=== PATIENT | female | born 1975 | race Caucasian/White ===

== ENCOUNTER 2017-02-02 08:41 | Emergency (ER) | payer MEDICAID ==
[2017-02-02 08:51] VITALS: BMI 25.7
[2017-02-02 08:54] VITALS: TEMP 98.6
--- NOTE | 2017-02-02 09:07 | C.PDOC ---
History Of Present Illness 41 year old female (), currently 12 weeks , presents to the ED with complaints of pelvic cramping and vaginal bleeding since 04:00 today. Patient states she was walking over to the bathroom at 04:00 when she passed four large clots, and two more while on the toilet. She states she was seen by her PRINCIPAL EXAMINER 2 days ago, had normal appointment. Patient reports she has been nauseous throughout her , and began to feel dizzy after the bleeding began. Her bleeding has decreased to some spotting. Patienrt denies fever, chills, vomiting, dysuria. Time Seen by Provider: 02/02/17 08:42 Chief Complaint (Nursing): Female Genitourinary History Per: Patient History/Exam Limitations: no limitations Onset/Duration Of Symptoms: Hrs Current Symptoms Are (Timing): Better Severity: Mild Radiation Of Pain To:: None Quality Of Discomfort: Cramping Associated Symptoms: Nausea. denies: Fever, Chills, Vomiting, Urinary Symptoms Exacerbating Factors: None Abnormal Vaginal Bleeding: Yes Past Medical History Reviewed: Historical Data, Nursing Documentation, Vital Signs Vital Signs: Last Vital Signs Temp 98.6 F 02/02/17 08:53 Pulse 86 02/02/17 12:41 Resp 17 02/02/17 12:41 BP 106/66 02/02/17 12:41 Pulse Ox 98 02/16/17 00:42 - Medical History PMH: No Chronic Diseases Family History: States: No Known Family Hx Review Of Systems Except As Marked, All Systems Reviewed And Found Negative. Constitutional: Negative for: Fever, Chills Cardiovascular: Negative for: Chest Pain Respiratory: Negative for: Shortness of Breath Gastrointestinal: Positive for: Nausea. Negative for: Vomiting, Abdominal Pain , Diarrhea Genitourinary: Positive for: Vaginal Bleeding, Pelvic Pain (+Pelvic cramping) Neurological: Positive for: Dizziness Physical Exam - Physical Exam Appears: Well, Non-toxic, No Acute Distress, Other (+Tearful) Skin: Normal Color, Warm, Dry Eye(s): bilateral: Normal Inspection Oral Mucosa: Moist Cardiovascular: Rhythm Regular Respiratory: Normal Breath Sounds, No Accessory Muscle Use, No Rales, No Rhonchi , No Wheezing Gastrointestinal/Abdominal: Bowel Sounds, Soft, Tenderness (+Mild suprapubic tenderness), No Guarding, No Rebound, Other (+Gravid; fundus is approximately 4.0 cm below the umbilicus) Back: Normal Inspection, No CVA Tenderness Extremity: Normal ROM Neurological/Psych: Oriented x3 ED Course And Treatment - Laboratory Results Result Diagrams: 02/02/17 09:28 02/02/17 09:28 O2 Sat by Pulse Oximetry: 98 (Room air) Pulse Ox Interpretation: Normal - CT Scan/US 1st Trimester US Other Rad Studies (CT/US): Read By Radiologist, Radiology Report Reviewed CT/US Interpretation: FINDINGS: UTERUS: Single Live intrauterine gestation. CRL equivalent to 13 weeks 3 days gestatioin. BPD equivalent to 14 weeks 0 days gestation. age (Ultrasound estimated): 13 weeks 5 days. Date of delivery (Ultrasound estimated) : 08/05/2017. Heart rate: 171 bpm. Sandy- gestational hemorrhage: Large perigestational hemorrhage with echogenic clot and serous fluid. The echogenic clot measures 9.2 cm by 10.8 x 4.4 cm. It appears somewhat organized and has an appearance that could represent neoplasm. However, this is unlikely. There is no flow demonstrated within this clot on color Doppler interrogation. Followup with pelvic ultrasound is advised. This is seen predominantly in the lower uterus sitting at the top the internal cervical os. The cervix appears closed and measures 4.1 cm in length. Uterus measures 18.6 x 9.1 x 13.7 cm. No mass. CERVIX: 4.1 cm. Closed. RIGHT OVARY : Measures 3.6 x 2.4 x 2.8 cm. No mass. Normal flow. LEFT OVARY: Not visualized. FREE FLUID: None. OTHER FINDINGS: None. IMPRESSION: Probable very large large subchorionic hemorrhage. What is likely organized clot has an appearance that could represent neoplasm but this is felt to be unlikely. . Single live intrauterine gestation of approximately 13 weeks 5 days. heart rate 171 beats per minute. Progress Note: Blood work, UA, ob US ordered and reviewed. Patient given IV NS bolus, IV reglan - did not want pain medication. Reevaluation Time: 13:15 Reassessment Condition: Improved (Patient currently resting comfortably, nausea has resolved and bleeding is scant. She was instructed to be on strict bed rest , have no sex and follow up with [facility] Dr. Chen for high risk sono as soon as possible. She was given Rxs for Reglan, Ferrous sulfate and Tylenol. Patient understands she should return to ED if symptoms worsen.) - Physician Consult Information Physician Contacted: Milton Guy Outcome Of Conversation: Discussed patient with national sales trainer gusset ripper Dr. Guy, she has looked at US. Recommends checking coags, patient should be on strict bedrest, no sex and should get high risk sono with MFM Dr. Chen if possible. Disposition Counseled Patient/Family Regarding: Studies Performed, Diagnosis, Need For Followup, Rx Given - Disposition Referrals: Darrell Chen MD [Staff Provider] - [facility] [Outside] Disposition: HOME/ ROUTINE Disposition Time: 13:15 Condition: STABLE Additional Instructions: FOLLOW UP WITH HIGH RISL PRINCIPAL EXAMINER WITHIN 1 WEEK NO SEX, STRICT BEDREST RETURN TO ER IF SYMPTOMS WORSEN Prescriptions: Ferrous Sulfate [Feosol] 325 mg PO DAILY #30 tab Metoclopramide [Reglan] 1 tab PO TID PRN #25 tab PRN Reason: Nausea/Vomiting Acetaminophen [Tylenol 325mg tab] 650 mg PO Q6 PRN #30 tab PRN Reason: pain/fever Instructions: Subchorionic Hemorrhage (ED), Threatened Miscarriage (ED) Forms: School Excuse Print Language: HUNGARIAN - POA Present On Arrival: None - Clinical Impression Clinical Impression: Subchorionic hemorrhage in second trimester, Vaginal bleeding in - Scribe Statement The provider has reviewed the documentation as recorded by the Scribe Jennifer David. Provider Attestation: All medical record entries made by the Scribe were at my direction and personally dictated by me. I have reviewed the chart and agree that the record accurately reflects my personal performance of the history, physical exam, medical decision making, and the department course for this patient. I have also personally directed, reviewed, and agree with the discharge instructions and disposition.
[2017-02-02 09:33] LABS: BASO % 0.3 % (0.0-2.0); EOS # 0.1 K/uL (0.0-0.7); EOS % 0.9 % (0.0-4.0); HEMATOCRIT 31.2 % (34.0-47.0); LYMPH # 1.3 K/uL (1.0-4.3); LYMPH % 20.5 % (20.0-40.0); MEAN CELL VOLUME 76.1 fL (81.0-99.0); MEAN CORPUSCULAR HEMOGLOBIN 24.2 pg (27.0-31.0); MEAN CORPUSCULAR HGB CONC 31.8 g/dL (33.0-37.0); MEAN PLATELET VOLUME 7.7 fL (7.2-11.7); MONO # 0.4 K/uL (0.0-0.8); MONO % 5.9 % (0.0-10.0); RED CELL DISTRIBUTION WIDTH 16.7 % (11.5-14.5); WHITE BLOOD COUNT 6.4 K/uL (4.8-10.8)
[2017-02-02] MEDS ORDERED: Sodium Chloride 0.9% 1,000 ML IV ONE (09:34)
[2017-02-02 09:37] LABS: URINE BILIRUBIN NEGATIVE (NEGATIVE); URINE BLOOD 3+ (NEGATIVE); URINE COLOR Red (YELLOW); URINE GLUCOSE (UA) NORMAL (Normal); URINE KETONE NEGATIVE (NEGATIVE); URINE LEUKOCYTE ESTERASE 2+ Leu/uL (Negative); URINE PROTEIN 2+ mg/dL (NEGATIVE); URINE UROBILINOGEN NORMAL mg/dL (0.2-1.0)
[2017-02-02] MEDS ORDERED: Sodium Chloride 0.9% 1,000 ML ONE (09:40)
[2017-02-02 09:41] LABS: CHLORIDE 100 mmol/L (98-107)
[2017-02-02 09:42] LABS: POTASSIUM 3.6 mmol/L (3.6-5.2); SODIUM 135 mmol/L (132-148)
[2017-02-02 09:44] LABS: AST/SGOT 21 U/L (14-36); BILIRUBIN,TOTAL 0.3 mg/dL (0.2-1.3); BLOOD UREA NITROGEN 7 mg/dL (7-17); CARBON DIOXIDE 24 mmol/L (22-30); GFR AFRICAN-AMERICAN > 60; TOTAL PROTEIN 7.4 g/dL (6.3-8.3)
[2017-02-02 09:45] LABS: ALKALINE PHOSPHATASE 42 U/L (38-126); ALT/SGPT 24 U/L (9-52); CALCIUM 9.1 mg/dl (8.6-10.4); GLUCOSE,RANDOM 90 mg/dL (65-105)
[2017-02-02 09:50] LABS: RBC URINE 1450 /hpf (0-3); URINE BACTERIA FEW (<OCC); WBC URINE 15 /hpf (0-5)
--- NOTE | 2017-02-02 11:27 | US ---
PROCEDURE: OB Pelvic Ultrasound HISTORY: PELVIC PAIN, BLEEDING, COMPARISON: None available. FINDINGS: UTERUS: Single Live intrauterine gestation. CRL equivalent to 13 weeks 3 days gestatioin BPD equivalent to 14 weeks 0 days gestation age (Ultrasound estimated): 13 weeks 5 days Date of delivery (Ultrasound estimated) : 08/05/2017 Heart rate: 171 bpm. Sandy-gestational hemorrhage: Large perigestational hemorrhage with echogenic clot and serous fluid. The echogenic clot measures 9.2 cm by 10.8 x 4.4 cm. It appears somewhat organized and has an appearance that could represent neoplasm. However, this is unlikely. There is no flow demonstrated within this clot on color Doppler interrogation. Followup with pelvic ultrasound is advised. This is seen predominantly in the lower uterus sitting at the top the internal cervical os. The cervix appears closed and measures 4.1 cm in length. Uterus measures 18.6 x 9.1 x 13.7 cm. No mass CERVIX: 4.1 cm. Closed. RIGHT OVARY: Measures 3.6 x 2.4 x 2.8 cm. No mass. Normal flow. LEFT OVARY: Not visualized FREE FLUID: None. OTHER FINDINGS: None. IMPRESSION: Probable very large large subchorionic hemorrhage. What is likely organized clot has an appearance that could represent neoplasm but this is felt to be unlikely. . Single live intrauterine gestation of approximately 13 weeks 5 days. heart rate 171 beats per minute.
[2017-02-02 12:42] VITALS: BP 106/66; PULSE 86; RESP 17
[2017-02-02 12:46] VITALS: O2SAT 98
== END 2017-02-02 13:51 | disposition home or self-care (01) ==
LOC: C.ER 08:41
DX: O20.9 Hemorrhage in early pregnancy, unspecified (principal); Z3A.12 12 weeks gestation of pregnancy
CPT/HCPCS: 76801; 80053; 81001; 84702; 85025; 85610; 85730; 86850; 86900; 96361; 96365; 99285; J2765; J7040

== ENCOUNTER 2017-02-10 14:29 | Emergency (ER) | payer MEDICAID ==
[2017-02-10 14:30] VITALS: BMI 25.7
--- NOTE | 2017-02-10 15:36 | C.PDOC ---
History Of Present Illness 41 y/o F p/w abdominal pain in . Approximately 15 weeks . States she had the same pain last week and was here, had US which showed subchorionic hemorrhage and was instructed to f/u with MFM and has appointment for 02/23. States bleeding that she had on prior visit stopped 2 days ago. Reports that pain has worsened and has had persistent nausea and vomiting. She is concerned about the fetus. She has been taking acetaminophen which was prescribed as 325mg Q6 hours. Denies dysuria, fever. Time Seen by Provider: 02/10/17 15:21 Chief Complaint (Nursing): Abdominal Pain History Per: Patient History/Exam Limitations: no limitations Onset/Duration Of Symptoms: Days Current Symptoms Are (Timing): Still Present Past Medical History Reviewed: Historical Data, Nursing Documentation, Vital Signs Vital Signs: Last Vital Signs Temp 97.9 F 02/10/17 14:45 Pulse 79 02/10/17 14:45 Resp 18 02/10/17 14:45 BP 97/63 L 02/10/17 14:45 Pulse Ox 100 02/10/17 16:00 Family History: States: No Known Family Hx - Social History Hx Alcohol Use: No Hx Substance Use: No - Immunization History Hx Tetanus Toxoid Vaccination: No Hx Influenza Vaccination: Yes Hx Pneumococcal Vaccination: No Review Of Systems Except As Marked, All Systems Reviewed And Found Negative. Constitutional: Negative for: Fever Cardiovascular: Negative for: Chest Pain Physical Exam - Physical Exam Additional Physical Exam Comments: Constitutional: No acute distress. Head: Normocephalic. Atraumatic. Eyes: PERRL. ENT: Moist mucous membranes. Neck: Supple. Cardiovascular: Regular rate. Radial pulses 2+ bilaterally. Chest: No tenderness. Respiratory: Clear to auscultation bilaterally. GI: Soft. Nondistended. Diffuse abdominal tenderness, most in lower abdomen with guarding. Back: No CVA tenderness. Musculoskeletal: No tenderness or swelling of extremities. Skin: No rash. Neurologic: Alert, no focal deficit. ED Course And Treatment - Laboratory Results Result Diagrams: 02/10/17 15:53 02/10/17 15:53 O2 Sat by Pulse Oximetry: 100 Medical Decision Making Medical Decision Making: PLAN: * US - OB * CBC * BETA Quant * Urinalysis * Tylenol PO NOTE: * Will repeat US and assess subchorionic hemorrhage and FHR. Check labs, urine, Hb, and beta. Will give full dose acetaminophen now. US - OB: Findings: Anterior fundal placenta. The placenta does not appear previa. Variable presentation. [place]-rump length measures approximately 8.4 cm compatible with gestational age 14 weeks 2 days. Large subchorionic hemorrhage measures approximately 7.5 x 6.2 x 5.7 cm. There is heart motion which measured 149.4 BPM. The right ovary measures 3.5 x 3.3 x 3.1 cm. The left ovary measures 4.0 x 2.0 x 4.4 cm. 1.7 x 1.2 x 1.9 cm left ovarian cyst. Blood flow was demonstrated to both ovaries. Cervix length measures approximately 6.5 cm. Impression: Estimated gestational age of intrauterine 14 weeks 2 days by crown- rump length calculation. heart rate 149.4 bpm. Large subchorionic hemorrhage. Advise an anomaly screen at 16-18 weeks gestational age Patient states she feels better after acetaminophen. According to US, fetus with FHR, increasing in size, subchorionic hemorrhage appears to be smaller in size. Will discharge patient, instructed to keep appointment with MFM. Increasing dose of acetaminophen to 650mg Q4H. Patient also requested medication for constipation. Disposition - Disposition Disposition: HOME/ ROUTINE Disposition Time: 17:30 Condition: STABLE Prescriptions: Nitrofurantoin Macrocrystals [Macrobid] 100 mg PO BID #14 cap Sennosides [Senexon] 2 tab PO QPM #30 tablet Acetaminophen [Tylenol 325mg tab] 2 tab PO Q4H #30 tab Instructions: Abdominal Pain in (ED) Forms: School Excuse - Clinical Impression Clinical Impression: Subchorionic hemorrhage in second trimester, Urinary tract infection in mother during - Scribe Statement The provider has reviewed the documentation as recorded by the Adelaide Bearden Provider Attestation: All medical record entries made by the Dominiqueibkarina were at my direction and personally dictated by me. I have reviewed the chart and agree that the record accurately reflects my personal performance of the history, physical exam, medical decision making, and the department course for this patient. I have also personally directed, reviewed, and agree with the discharge instructions and disposition.
[2017-02-10 16:02] LABS: BASO % 0.3 % (0.0-2.0); EOS # 0.1 K/uL (0.0-0.7); EOS % 1.6 % (0.0-4.0); HEMATOCRIT 28.4 % (34.0-47.0); LYMPH # 1.5 K/uL (1.0-4.3); LYMPH % 20.7 % (20.0-40.0); MEAN CELL VOLUME 76.1 fL (81.0-99.0); MEAN CORPUSCULAR HEMOGLOBIN 24.3 pg (27.0-31.0); MONO # 0.5 K/uL (0.0-0.8); MONO % 6.3 % (0.0-10.0); RED CELL DISTRIBUTION WIDTH 16.8 % (11.5-14.5); WHITE BLOOD COUNT 7.4 K/uL (4.8-10.8)
[2017-02-10 16:07] LABS: RBC URINE 53 /hpf (0-3); URINE BACTERIA MOD (<OCC); URINE BILIRUBIN NEGATIVE (NEGATIVE); URINE BLOOD 1+ (NEGATIVE); URINE COLOR Amber (YELLOW); URINE GLUCOSE (UA) NORMAL (Normal); URINE KETONE NEGATIVE (NEGATIVE); URINE LEUKOCYTE ESTERASE 3+ Leu/uL (Negative); URINE PROTEIN 1+ mg/dL (NEGATIVE); URINE UROBILINOGEN NORMAL mg/dL (0.2-1.0); WBC URINE 108 /hpf (0-5)
[2017-02-10 16:42] LABS: CHLORIDE 99 mmol/L (98-107)
[2017-02-10 16:43] LABS: POTASSIUM 3.7 mmol/L (3.6-5.2); SODIUM 132 mmol/L (132-148)
[2017-02-10 16:45] LABS: ALB/GLOB RATIO 1.2 (1.0-2.1); ALKALINE PHOSPHATASE 44 U/L (38-126); AST/SGOT 22 U/L (14-36); BILIRUBIN,TOTAL 0.4 mg/dL (0.2-1.3); CARBON DIOXIDE 23 mmol/L (22-30); GFR AFRICAN-AMERICAN > 60; TOTAL PROTEIN 7.5 g/dL (6.3-8.3)
[2017-02-10 16:46] LABS: ALT/SGPT 14 U/L (9-52); BLOOD UREA NITROGEN 7 mg/dL (7-17); GLUCOSE,RANDOM 81 mg/dL (65-105)
--- NOTE | 2017-02-10 17:29 | US ---
Indication: Abdominal pain in Comparison: 1st trimester ultrasound performed 02/02/17 Technique: OB , limited Findings: Anterior fundal placenta. The placenta does not appear previa. Variable presentation. [place]-rump length measures approximately 8.4 cm compatible with gestational age 14 weeks 2 days. Large subchorionic hemorrhage measures approximately 7.5 x 6.2 x 5.7 cm. There is heart motion which measured 149.4 BPM. The right ovary measures 3.5 x 3.3 x 3.1 cm. The left ovary measures 4.0 x 2.0 x 4.4 cm. 1.7 x 1.2 x 1.9 cm left ovarian cyst. Blood flow was demonstrated to both ovaries. Cervix length measures approximately 6.5 cm. Impression: Estimated gestational age of intrauterine 14 weeks 2 days by crown-rump length calculation. heart rate 149.4 bpm. Large subchorionic hemorrhage. Advise an anomaly screen at 16-18 weeks gestational age
[2017-02-10 18:11] VITALS: BP 103/55; PULSE 68; RESP 20; TEMP 97.4; O2SAT 98
== END 2017-02-10 18:24 | disposition home or self-care (01) ==
LOC: C.ER 14:29
DX: O20.8 Other hemorrhage in early pregnancy (principal); O23.42 Unspecified infection of urinary tract in pregnancy, second trimester; Z3A.14 14 weeks gestation of pregnancy

== ENCOUNTER 2017-07-27 20:36 | Inpatient (IN) | payer MEDICAID ==
[2017-07-27] MEDS ORDERED: Penicillin G 5 Million Unit Vial IVPB ONE ×2 (21:31)
[2017-07-27] MEDS ORDERED: Bupivacaine 0.125%/FentaNYL 200 ML EPI ONE (21:36)
[2017-07-27] MEDS ORDERED: Bupivacaine HCl 0.25% PF (10 ml) Inj ONE (21:36)
--- NOTE | 2017-07-27 21:43 | OBHP ---
Datetime: 07/27/2017 21:35 IP Adm Impression: Term, intrauterine IP Admit Plan: Admit to unit Admit Comment, IP Provider: 41 y/o @ 37.6 wks GA JAYCE 08/11/17 by LMP c/w US reprots ctx pain since 5pm every 5 min increasing intensity and severity. pt reports she has been having ctx pain x 2 days and was seen at [facility] [place] [facility] last night and dc home initially 1cm then 3cm. Pt denies any LOF, vb, +FM. pt reports normla prenatla course at clinic with Dr Castillo. Ante: AMA declined amniocneties, normal cell free dna, reports she is GBS positive OB: FT [address] [place] [address], epiudral Labor: 10 hours, SAB x 2 [employer] COORDINATOR: denies hx of fibroids, STI, abnormal pap, reports hx of ovarian cyst (no intervention requred ) PMH: denies PSH: Right ankle surgery, hemmoroidectoy FHX denies SHX: denies MEDS: Zofran, antacid, PNV NKDA VSS PE See above VE: /-2 VTX , intact A/P 41 y/o @ 37.6 wks GA, AMA, in active labor, GBS positive -admit to L+D -npo, IVF -admissin labs -pCn for gbs prophylsixs -epidural prn Pelvic Type - PN: Adequate Extremities - PN: Normal Abdomen - PN: Normal Back - PN: Normal Breast - PN: Not Done Lungs - PN: Normal Heart - PN: Normal Thyroid - PN: Not Done Neurologic - PN: Not Done HEENT - PN: Normal General - PN: Normal Weight - Estimated: 3300 Presentation-Admit: Vertex FHR - Baseline A Provider: 125 Membranes, Provider: Intact Contraction Comments Provider: q 4-5 min Gestation - Est Wks by US: 37.6 IP Hx Assessment: The History has been Reviewed and is Current EGA AdmitDate IP: 37.6 Vital Signs Provider: Reviewed; Within Normal Limits IP Chief Complaint: Uterine contractions NICHD Variability Prov Fetus A: Moderate 6-25bpm NICHD Accel Fetus A IP Provider: 15X15 FHR Category Provider Fetus A: Category I NICHD Decel Fetus A IP Provider: None Dilatation, Provider: 5 Effacement, Provider: 70 Station, Provider: -2 Genitourinary Exam: Normal DTRs - PN: Normal
[2017-07-27] MEDS ORDERED: Lactated Ringer's 1,000 ML IV SCH (21:45)
--- NOTE | 2017-07-27 21:54 | OBADHP ---
Datetime: 07/27/2017 21:35 Admit Comment, IP Provider: 41 y/o @ 37.6 wks GA JAYCE 08/11/17 by LMP c/w US reprots ctx pain since 5pm every 5 min increasing intensity and severity. pt reports she has been having ctx pain x 2 days and was seen at [facility] last night and dc home initially 1cm then 3cm. Pt denies any LOF, vb, +FM. pt reports normla prenatla course at clinic with Dr Castillo. Ante: AMA declined amniocneties, normal cell free dna, reports she is GBS positive OB: FT 2009 [facility], epiudral Labor: 10 hours, SAB x 2 CV RN: denies hx of fibroids, STI, abnormal pap, reports hx of ovarian cyst (no intervention requred ) PMH: denies PSH: Right ankle surgery, hemmoroidectoy FHX denies SHX: denies MEDS: Zofran, antacid, PNV NKDA VSS PE See above VE: /-2 VTX , intact A/P 41 y/o @ 37.6 wks GA, AMA, in active labor, GBS positive -admit to L+D -npo, IVF -admissin labs -pCn for gbs prophylsixs -epidural prn Pelvic Type - PN: Adequate Extremities - PN: Normal Abdomen - PN: Normal Back - PN: Normal Breast - PN: Not Done Lungs - PN: Normal Heart - PN: Normal Thyroid - PN: Not Done Neurologic - PN: Not Done HEENT - PN: Normal General - PN: Normal Weight - Estimated: 3300 Presentation-Admit: Vertex FHR - Baseline A Provider: 125 Membranes, Provider: Intact Contraction Comments Provider: q 4-5 min Gestation - Est Wks by US: 37.6 IP Hx Assessment: The History has been Reviewed and is Current Vital Signs Provider: Reviewed; Within Normal Limits IP Chief Complaint: Uterine contractions NICHD Variability Prov Fetus A: Moderate 6-25bpm NICHD Accel Fetus A IP Provider: 15X15 FHR Category Provider Fetus A: Category I NICHD Decel Fetus A IP Provider: None Dilatation, Provider: 5 Effacement, Provider: 70 Station, Provider: -2 Genitourinary Exam: Normal DTRs - PN: Normal EGA AdmitDate IP: 37.6 IP Adm Impression: Term, intrauterine IP Admit Plan: Admit to unit
[2017-07-27 21:58] LABS: BASO % 0.2 % (0.0-2.0); EOS % 0.2 % (0.0-4.0); HEMATOCRIT 37.1 % (34.0-47.0); LYMPH # 1.4 K/uL (1.0-4.3); LYMPH % 12.6 % (20.0-40.0); MEAN CELL VOLUME 83.6 fL (81.0-99.0); MEAN CORPUSCULAR HEMOGLOBIN 27.5 pg (27.0-31.0); MEAN CORPUSCULAR HGB CONC 32.8 g/dL (33.0-37.0); MEAN PLATELET VOLUME 8.1 fL (7.2-11.7); MONO # 0.7 K/uL (0.0-0.8); MONO % 6.3 % (0.0-10.0); WHITE BLOOD COUNT 11.4 K/uL (4.8-10.8)
[2017-07-27 22:03] LABS: RBC URINE 150 /hpf (0-3); URINE BACTERIA MOD (<OCC); URINE BILIRUBIN NEGATIVE (NEGATIVE); URINE BLOOD 2+ (NEGATIVE); URINE COLOR Yellow (YELLOW); URINE GLUCOSE (UA) NORMAL (Normal); URINE KETONE 1+ mg/dL (NEGATIVE); URINE LEUKOCYTE ESTERASE 3+ Leu/uL (Negative); URINE PROTEIN 2+ mg/dL (NEGATIVE); URINE UROBILINOGEN NORMAL mg/dL (0.2-1.0); WBC CLUMPS MANY /hpf; WBC URINE 847 /hpf (0-5)
[2017-07-27 22:06] LABS: CHLORIDE 104 mmol/L (98-107); POTASSIUM 3.7 mmol/L (3.6-5.2); SODIUM 136 mmol/L (132-148)
[2017-07-27 22:08] LABS: CARBON DIOXIDE 19 mmol/L (22-30); GFR AFRICAN-AMERICAN > 60
[2017-07-27 22:09] LABS: ALKALINE PHOSPHATASE 127 U/L (38-126); ALT/SGPT 28 U/L (9-52); AST/SGOT 30 U/L (14-36); BILIRUBIN,TOTAL 0.7 mg/dL (0.2-1.3); BLOOD UREA NITROGEN 7 mg/dL (7-17); GLUCOSE,RANDOM 89 mg/dL (65-105)
[2017-07-27 22:41] LABS: RAPID PLASMA REAGIN NONREACTIVE (NONREACTIVE)
--- NOTE | 2017-07-28 03:24 | OBPN ---
Datetime: 07/28/2017 03:13 IP Progress Impression: Normal progression of labor IP Progress Plan: Continue present management Membranes, Provider: Ruptured FHR - Baseline A Provider: 135 Gestation - Est Wks by US: 38.0 Presentation-Admit: Vertex IP Progress Note Comment: pt seen and examined c/o ofpressure. pt ith fluid around perineum, during examating, suspected rom. ptd enies vb, +FM VSS EMF: Cat I TOCO: q 2-3 min A/P @ 38 wks GA in actibe labor -cont current manamgnet -cont pcn Vital Signs Provider: Reviewed; Within Normal Limits FHR Category Provider Fetus A: Category I NICHD Variability Prov Fetus A: Moderate 6-25bpm Dilatation, Provider: 6 Effacement, Provider: 70 Station, Provider: -1 Datetime: 07/27/2017 21:35 Contraction Comments Provider: q 4-5 min Weight - Estimated: 3300 NICHD Accel Fetus A IP Provider: 15X15 NICHD Decel Fetus A IP Provider: None
--- NOTE | 2017-07-28 06:38 | OBPN ---
Datetime: 07/28/2017 06:34 IP Progress Impression: Normal progression of labor IP Progress Plan: Continue present management Membranes, Provider: Ruptured Contraction Comments Provider: q 3-5 min FHR - Baseline A Provider: 145 Gestation - Est Wks by US: 38.0 IP Progress Note Comment: pt c/o of pain wiht contractions s/p epidural, dneies vb +FM VSS EFM: cat I toco: q 3-5 min A/P 41 y/o @ 38 wks GA in active labor -epidural top off -cont current managment NICHD Accel Fetus A IP Provider: 15X15 FHR Category Provider Fetus A: Category I NICHD Variability Prov Fetus A: Moderate 6-25bpm Dilatation, Provider: 8 Effacement, Provider: 80 Station, Provider: -1
[2017-07-28] MEDS ORDERED: Oxytocin 30 UNIT 30 UNITS/500 ML BAG IV SCH ×2 (07:15→08:49)
--- NOTE | 2017-07-28 07:52 | OBPN ---
Datetime: 07/28/2017 07:46 IP Progress Impression: Normal progression of labor IP Procedures: Artificial ROM; Sterile Vag Exam IP Progress Plan: Continue present management Contraction Comments Provider: every 3-4min Gestation - Est Wks by US: 38.0 Weight - Estimated: 3200 Presentation-Admit: Vertex IP Progress Note Comment: S-patient comfortable with epidural O-VSS Afebrile FHT cat1 Accord ctx q3-4min sve 8/100/-2; forebag ; adequate pelvis A/P patient in labor at 38 wga.Forebag ruptured -continue present management Vital Signs Provider: Reviewed; Within Normal Limits FHR Category Provider Fetus A: Category I Dilatation, Provider: 8 Effacement, Provider: 100 Station, Provider: -2
[2017-07-28] MEDS ORDERED: Oxytocin 30 UNIT 30 UNITS/500 ML BAG IV ONE (08:31)
[2017-07-28] MEDS ORDERED: Oxycodone/Acetaminophen 5/325 mg Tab PO PRN (11:01)
--- NOTE | 2017-07-28 11:13 | OBDS ---
DELIVERY PERSONNEL Delivery Doctor: Marcy Pollard MD Concrete Batch Plant Operator: Tanja Carballo RN Anesthesiologist: MATERNAL INFORMATION Delivery Anesthesia: Epidural Estimated Blood Loss (ml): 300 Placenta Cultured: No Provider Comments: of a male from DELMER position.Body and shoulders delivered without diffi culty.Cord clamped and cut.Cord blood collected.Placenta spontaneously delivered. second degree perineal laceration repaired with 2-0 chromic Right periurethral laceration repaired with 3-0 vicryl LABOR SUMMARY EDC: 08/11/2017 00:00 No. Babies in Womb: 1 Attempted: No Labor Anesthesia: Epidural LABOR INFORMATION Reason for Induction: Not Applicable Onset of Labor: 07/27/2017 17:00 Complete Dilatation: 07/28/2017 09:48 Oxytocin: Augmentation Group B Beta Strep: Positive Antibiotics # of Doses: 4 Antibiotics Time of Last Dose: Pen G 2.5 MU @ 0944am Steroids Given: None Reason Steroids Not Administered: Not Applicable MEMBRANES Membranes Rupture Method: Spontaneous Rupture of Membranes: 07/28/2017 02:59 Length of Rupture (hrs): 7.23 Amniotic Fluid Color: Clear Amniotic Fluid Amount: Small Amniotic Fluid Odor: Normal STAGES OF LABOR Stage 1 hrs: 16 Stage 1 min: 48 Stage 2 hrs: 0 Stage 2 min: 25 Stage 3 hrs: 0 Stage 3 min: 39 Total Time in Labor hrs: 17 Total Time in Labor min: 52 VAGINAL DELIVERY Episiotomy: None Laceration Extension: Second Degree Laceration Type: Perineal; Periurethral Laceration Repair: Yes Laceration Repair Note: second degree perineal laceration repaired with 2-0 chromic Right periurethral laceration repaired with 3-0 vicryl Initial Vag Sponge Count: 10 Initial Vag Sharps Count: 2 Sponge Count Correct: Yes; Vaginal Sweep Performed Sharps Count Correct: Yes BABY A INFORMATION Infant Delivery Date/Time: 07/28/2017 10:13 Method of Delivery: Vaginal Born in Route : No : N/A Forceps: N/A Vacuum Extraction: N/A Shoulder Dystocia : No SHOULDER DYSTOCIA BABY A Infant Delivery Date/Time: 07/28/2017 10:13 PRESENTATION/POSITION BABY A Presentation: Cephalic Cephalic Presentation: Vertex Vertex Position: Left Occipital Anterior Breech Presentation: N/A PLACENTA INFORMATION BABY A Placenta Delivery Time : 07/28/2017 10:52 Placenta Method of Delivery: Spontaneous Placenta Status: Delivered SCORES BABY A Heart Rate 1 min: >100 bpm Resp Effort 1 min: Good Cry Reflex Irritability 1 min: Cough or Sneeze or Pulls Away Muscle Tone 1 min: Active Motion Color 1 min: Body Martorell, Extremities Blue Resuscitation Effort 1 min: N/A SCORE 1 MIN: 9 Heart Rate 5 min: >100 bpm Resp Effort 5 min: Good Cry Reflex Irritability 5 min: Cough or Sneeze or Pulls Away Muscle Tone 5 min: Active Motion Color 5 min: Body Martorell, Extremities Blue Resuscitation Effort 5 min: N/A SCORE 5 MIN: 9 INFORMATION BABY A Gestational Age at Delivery: 38.0 Gestational Status: Term Outcome : Liveborn Condition : Stable Infant Sex: Male IDENTIFICATION/MEDS BABY A ID Band Number: [id number] ID Band Location: Left Leg; Left Arm Sensor Applied: Yes Sensor Number: [id number] Sensor Location : Cord Clamp Vitamin K Given : Not Given Erythromycin Given: Not Given WEIGHT/LENGTH BABY A Infant Birthweight (gms): 3265 Infant Weight (lb): 7 Infant Weight (oz): 3 Length Inches: 19.75 Length cms: 50.2 CORD INFORMATION BABY A No. Cord Vessels: 3 Nuchal Cord : N/A Cord Blood Taken: Yes ASSESSMENT BABY A Infant Complications: None Physical Findings at Delivery: Within Normal Limits Infant Respirations: Appears Normal Die Casting Supervisor/ALS Called : Yes Infant Care By: /Jarret Transferred To: [facility]
[2017-07-28] MEDS ORDERED: cefOXitin IV 1 gm in Dextrose 1 GM/50 ML BAG IVPB ONE (12:00)
[2017-07-28] MEDS: Benzocaine/Menthol 20%-0.5% Topical Spray (60 ml) TOP PRN (14:49)
[2017-07-29 08:21] LABS: BASO % 0.3 % (0.0-2.0); EOS # 0.1 K/uL (0.0-0.7); EOS % 0.6 % (0.0-4.0); HEMATOCRIT 30.9 % (34.0-47.0); LYMPH % 15.9 % (20.0-40.0); MEAN CELL VOLUME 84.9 fL (81.0-99.0); MEAN PLATELET VOLUME 8.1 fL (7.2-11.7); MONO # 0.7 K/uL (0.0-0.8); RED CELL DISTRIBUTION WIDTH 16.9 % (11.5-14.5); WHITE BLOOD COUNT 12.4 K/uL (4.8-10.8)
--- NOTE | 2017-07-29 19:56 | OBPPN ---
Datetime: 07/29/2017 07:17 PP Pain Prov: Within normal limits PP Nausea Prov: Denies PP Flatus Prov: Yes PP BM Prov: No PP Abdomen/Uterus Prov: Normal PP Lochia Prov: Normal PP Extremities Prov: Normal PP Impression Prov: Normal progression PP Plan Prov: Continue present management PP Progress Note Prov: Patient seen and examined at bedside. Per nursing no acute events overnight. Patient is doing well, pain is controlled. Lochia is moderate. Urinating without difficulty. Passing flatus but no BM. Denies headache, dizziness, cp, palpitations, urinary symptoms. Breast feeding. VS: BP 92/53 HR 69 Gen: AAOx3 CV: RRR Lungs: CTA B/L Abd: soft, fundus is firm at umbilicus Ext: no clubbing, cyanosis, edema; no calf tenderness Labs: 11.4>12.2/37.1<209 F/U am CBC O positive Rubella immune A/P: 41 yo at 38w0d s/p with second degree perineal PPD#1 1. Stable, afebrile 2. Pain control - tylenol and motrin prn 3. F/U am CBC 4. Encourage ambulation and hydration 5. Encourage 6. Male infant - desires circ e 7. Continue routine care 8. Anticipate d/c home tomorrow 9. Plan d/w attending attending note. agrees with abov Vital Signs Provider PP: Reviewed
[2017-07-30] MEDS: Benzocaine/Menthol 20%-0.5% Topical Spray (60 ml) TOP PRN (09:34)
--- NOTE | 2017-07-30 10:16 | OBPPN ---
Datetime: 07/30/2017 08:05 PP Pain Prov: Within normal limits PP Nausea Prov: Denies PP Flatus Prov: Yes PP BM Prov: Yes PP Impression Prov: Normal progression PP Plan Prov: Continue present management; Discharge PP Progress Note Prov: Patient seen and examined at bedside. Per nursing no acute events overnight. Patient is doing well, pain is controlled. Lochia is moderate. Patient is ambulating and tolerating d iet. Breast feeding. Passing flatus and BM. Urinating without difficulty. Denies headaches, dizziness , cp, palpitations, sob, urinary symptoms. VS: 100/61 75 97.0 Gen: AAOx3, NAD Abd: Soft, appropriately tender, fundus firm 1 fingerbreath below umbilicus Ext: No clubbing, cyanosis, edema; no calf tenderness Labs: 11.4>12.2/37.1<209 14.2>10.2/30.9<187 O positive Rubella immune A/P: 41 yo at 38w0d s/p with 2nd degree perineal laceration PPD#2 1. Stable, afebrile 2. Pain control - motrin and tylenol prn 3. Encourage ambulation and hydration 4. Encourage 5. Continue routine care 6. Discussed methods of contraception, patient does not desire at this time 7. Anticipate d/c home today - pelvic rest x 6 weeks, motrin prn pain, continue Iron and vitamins, recommending sennakot prn constipation, f/u with clinic in 6 weeks for post visit 8. Plan d/w attending Sol Edmondson DO PGY-1 Attending Note: Patient seen and evaluated by me with Resident. I agree with the documentation of events as above. Marii Lopez MD Vital Signs Provider PP: Reviewed; Within Normal Limits
--- NOTE | 2017-07-30 10:19 | OBDCSUM ---
Datetime: 07/30/2017 08:13 Discharged to, Provider: Home Follow up at, Provider: Clinic Disch Instr Activity: Normal activity; May Shower Disch Instr Diet: Regular Discharge Diet restrict Prov: none Discharge Instructions, Provider: Routine instructions given Discharge Diagnosis, Provider: Term Delivered Discharge Time: 07/30/2017 08:30 Follow up in weeks, Provider: 6 weeks Disch Referrals: None Contraception discussed, Prov: Yes Disch Activity Restrictions: No sexual activity; Nothing in vagina - [place], tampons, douche Discharge Comment, Provider: Pelvic rest x 6 weeks, motrin pain prn Discharge Diagnosis Prov Other: Advanced maternal age Anemia Contraception after Delivery: Not Planning to Use
--- NOTE | 2017-07-30 10:24 | OBDCSUM ---
Datetime: 07/30/2017 08:13 Discharged to, Provider: Home Follow up at, Provider: Clinic Disch Instr Activity: Normal activity; May Shower Disch Instr Diet: Regular Discharge Diet restrict Prov: none Discharge Instructions, Provider: Routine instructions given Discharge Diagnosis, Provider: Term Delivered Discharge Time: 07/30/2017 08:30 Follow up in weeks, Provider: 6 weeks Disch Referrals: None Contraception discussed, Prov: Yes Disch Activity Restrictions: No sexual activity; Nothing in vagina - [place], tampons, douche Discharge Comment, Provider: Pelvic rest x 6 weeks, motrin pain prn Discharge Diagnosis Prov Other: Advanced maternal age Anemia Contraception counseling Contraception after Delivery: Not Planning to Use
[2017-07-31 01:59] VITALS: BP 100/65; PULSE 72; RESP 18; TEMP 97.2; O2SAT 98
== END 2017-07-30 21:00 | disposition home or self-care (01) | DRG 373 ==
LOC: C.EROB 20:36 → C.4D 21:06 → C.4M 07-28 12:40
PROVIDERS: ADMIT Obstetrics & Gynecology; ATTEND Obstetrics & Gynecology
PROC: 10E0XZZ Delivery of Products of Conception, External Approach (ICD-10-PCS; principal; 2017-07-28)
PROC: 0KQM0ZZ Repair Perineum Muscle, Open Approach (ICD-10-PCS; 2017-07-28)
PROC: 0UQMXZZ Repair Vulva, External Approach (ICD-10-PCS; 2017-07-28)
DX: O99.824 Streptococcus B carrier state complicating childbirth (principal); O70.1 Second degree perineal laceration during delivery; O71.5 Other obstetric injury to pelvic organs; Z3A.38 38 weeks gestation of pregnancy; Z37.0 Single live birth

== ENCOUNTER 2017-08-15 20:29 | Emergency (ER) | payer MEDICAID ==
[2017-08-15 20:30] VITALS: BMI 25.7
[2017-08-15] MEDS ORDERED: Sodium Chloride 0.9% 1,000 ML IV ONE ×2 (21:23→23:18)
--- NOTE | 2017-08-15 21:29 | C.PDOC ---
History Of Present Illness 41 yo female s/p NVD on 07/27/17 come in for evaluation of bodyaches, chills, low grade fever, diffuse lower abdominal pain gradually developed for past 6 days. Pt reports, pain is localized, constant, gradually worsen with time associated with intermittent lower back pain. Pt reports, was taking Ibuprofen and Tylenol at home with some improvement in pain. As per pt, had ipisiotomy "and my stitches is so itchy there". Otherwise, pt denies high fever, headache, dizziness, neck pain, sore throat, drooling, dysphagia, dyspnea, cough, CP, SOB , V/D, hematuria. Ambulate to ED for evaluation. FYI: records from delivery review. Pt delivered on 07/27/17, performed by , second degree perineal laceration / Right urethral laceration repaired by sutures. N0 post-delivery complication, score baby 10. Time Seen by Provider: 08/15/17 21:11 Chief Complaint (Nursing): Abdominal Pain History Per: Patient Onset/Duration Of Symptoms: Gradual Current Symptoms Are (Timing): Still Present Past Medical History Reviewed: Historical Data, Nursing Documentation, Vital Signs Vital Signs: Last Vital Signs Temp 98.2 F 08/16/17 00:54 Pulse 95 H 08/16/17 00:54 Resp 18 08/16/17 00:54 BP 96/61 L 08/16/17 00:54 Pulse Ox 97 08/16/17 00:54 - Medical History PMH: No Chronic Diseases Denies: Depression, Diabetes, HTN Surgical History: No Surg Hx - [facility] Procedures DELIVERY OF PRODUCTS OF CONCEPTION, EXTERNAL APPROACH (07/27/17) REPAIR PERINEUM MUSCLE, OPEN APPROACH (07/27/17) REPAIR VULVA, EXTERNAL APPROACH (07/27/17) Family History: States: No Known Family Hx - Social History Hx Alcohol Use: No Hx Substance Use: No - Immunization History Hx Tetanus Toxoid Vaccination: No Hx Influenza Vaccination: Yes Hx Pneumococcal Vaccination: No Review Of Systems Except As Marked, All Systems Reviewed And Found Negative. Constitutional: Positive for: Fever (low grade), Chills Eyes: Negative for: Vision Change ENT: Negative for: Ear Discharge, Nose Discharge, Nose Congestion, Throat Pain, Throat Swelling Cardiovascular: Negative for: Chest Pain, Palpitations Respiratory: Negative for: Cough, Shortness of Breath, Wheezing Gastrointestinal: Positive for: Abdominal Pain. Negative for: Nausea, Vomiting , Diarrhea, Constipation, Melena Genitourinary: Positive for: Dysuria. Negative for: Frequency, Incontinence, Hematuria Musculoskeletal: Positive for: Back Pain Skin: Negative for: Rash Neurological: Negative for: Weakness, Numbness, Altered Mental Status, Headache , Dizziness Physical Exam - Physical Exam Appears: Well, Non-toxic, No Acute Distress Skin: Normal Color, Warm, Dry, No Rash Eye(s): bilateral: PERRL Ear(s): Bilateral: Normal Nose: No Flaring, No Discharge Oral Mucosa: Moist, Drooling Tongue: Normal Appearing Lips: Normal Appearing Throat: No Erythema, No Exudate, No Drooling Neck: Supple Cardiovascular: Rhythm Regular, No Murmur, No JVD Respiratory: No Decreased Breath Sounds, No Accessory Muscle Use, No Stridor, No Wheezing Gastrointestinal/Abdominal: Soft, Tenderness, No Distention, No Guarding, No Rebound Back: No CVA Tenderness, No Vertebral Tenderness, Paraspinal Tenderness ( diffuse lumbar) Extremity: No Tenderness, No Pedal Edema, No Swelling Neurological/Psych: Oriented x3, Normal Speech ED Course And Treatment - Laboratory Results Result Diagrams: 08/15/17 21:33 08/15/17 21:33 Lab Interpretation: Normal Urine POC: Negative O2 Sat by Pulse Oximetry: 99 Pulse Ox Interpretation: Normal - CT Scan/US Transvaginal US Other Rad Studies (CT/US): Read By Radiologist, Radiology Report Reviewed CT/US Interpretation: Ultrasound. . . PELVIS/TRANSVAG US Exam Date: 08/15/17. . This imaging exam was performed at [facility]. EXAM: US Pelvis Complete, Transabdominal. . CLINICAL HISTORY: 41 years old, female; Pain; Abdominal pain; Lower abdomen; Additional info: Post- abdominal pain. . TECHNIQUE: Real-time transabdominal pelvic ultrasound (complete) with image. documentation. . COMPARISON: No relevant prior studies available. . FINDINGS: Uterus/cervix: Uterus measures 13.0 x 8.0 x 9.5 cm in size. No myometrial. mass. Closed cervix. Endometrium: 0.6 cm in thickness. Two echogenic foci within endometrium,. larger measuring 0.4 x 0.4 x 0.3 cm. Right ovary: 4.2 x 2.2 x 2.1 cm in size. No mass. Normal flow. Left ovary: 3.2 x 1.5 x 2.7 cm in size. No mass. Normal flow. Free fluid: No significant free fluid. Bladder: Unremarkable as visualized. . IMPRESSION: 1. Echogenic foci within endometrium, nonspecific. Clinical correlation is. needed. . . . Dictated By: Lee Haider MD. Dictated Date/Time: 08/15/172305. Signed By: Lee Haider MD. Date Signed: 2305. Transcribed By: [facility]. Transcribe Date/Time: 08/15/172305. ACYP02/ MT Progress Note: Pt was OBs in ED for 3 hours and rports mod improvement in sx. On re-evaluation, pt is awake, not in any apparent distress. Afebrile hemodynamicaly stable. Non-toxic. Tolerate Po well in ED. PulseOx 99% RA. ENT: no acute findings. Neck: Supple, (-) meningeal sign. Lungs: CTA B/L, BS equal B /L. ABd: benign, (-) guarding, (-) rebound. Back: (-) CVA tenderness. UA results review and c/w UTI. Abx given., UCx- pending. preg (-). Imaging results review and case discussed with [employer] [employer] [facility]-on-call , " findings c/w normal post-partung healing process", no acute abnormalities noted. parent advised on course of ds. ref. to f/u with [employer] as scheduled tomorrow for re- evaluation. Return to ED if any worsening for new changes. Disposition Counseled Patient/Family Regarding: Studies Performed, Diagnosis, Need For Followup, Rx Given - Disposition Referrals: Rosita Deluca MD [Staff Provider] - [facility]] Disposition: HOME/ ROUTINE Disposition Time: 00:17 Condition: STABLE Additional Instructions: ENCOURAGE FLUIDS CRANBERRY JUICE OR SUPPLEMENT TAKE MEDICATION PRESCRIBED FOLLOW UP WITH [employer] SCHEDULED TOMORROW FOR FURTHER EVALUATION AND TREATMENT. RETURN TO ed IF ANY WORSENING OR NEW CHANGES. Prescriptions: Cefdinir [Omnicef] 300 mg PO BID #14 cap Ketorolac Tromethamine [Toradol] 10 mg PO BID #6 tab Instructions: Urinary Tract Infection in Women (ED) Forms: [employer] ([place]) - Clinical Impression Clinical Impression: UTI (urinary tract infection)
[2017-08-15 21:48] LABS: BASO % 0.3 % (0.0-2.0); EOS # 0.2 K/uL (0.0-0.7); EOS % 1.7 % (0.0-4.0); HEMATOCRIT 37.2 % (34.0-47.0); LYMPH # 1.9 K/uL (1.0-4.3); LYMPH % 19.5 % (20.0-40.0); MEAN CELL VOLUME 85.9 fL (81.0-99.0); MEAN CORPUSCULAR HEMOGLOBIN 28.6 pg (27.0-31.0); MEAN CORPUSCULAR HGB CONC 33.3 g/dL (33.0-37.0); MEAN PLATELET VOLUME 7.9 fL (7.2-11.7); MONO # 0.7 K/uL (0.0-0.8); MONO % 7.4 % (0.0-10.0); RED CELL DISTRIBUTION WIDTH 16.8 % (11.5-14.5); WHITE BLOOD COUNT 9.5 K/uL (4.8-10.8)
[2017-08-15 21:49] LABS: CHLORIDE 99 mmol/L (98-107); POTASSIUM 3.8 mmol/L (3.6-5.2); SODIUM 133 mmol/L (132-148)
[2017-08-15 21:51] LABS: BILIRUBIN,TOTAL 0.5 mg/dL (0.2-1.3); GFR AFRICAN-AMERICAN > 60
[2017-08-15 21:52] LABS: ALKALINE PHOSPHATASE 95 U/L (38-126); ALT/SGPT 28 U/L (9-52); AST/SGOT 19 U/L (14-36); BLOOD UREA NITROGEN 12 mg/dL (7-17); CARBON DIOXIDE 23 mmol/L (22-30); GLUCOSE,RANDOM 87 mg/dL (65-105); TOTAL PROTEIN 7.6 g/dL (6.3-8.3)
[2017-08-15 21:53] LABS: CALCIUM 8.9 mg/dl (8.6-10.4)
[2017-08-15 22:16] LABS: RBC URINE 15 /hpf (0-3); URINE BACTERIA FEW (<OCC); URINE BILIRUBIN NEGATIVE (NEGATIVE); URINE BLOOD 2+ (NEGATIVE); URINE COLOR Yellow (YELLOW); URINE GLUCOSE (UA) NORMAL (Normal); URINE KETONE NEGATIVE (NEGATIVE); URINE LEUKOCYTE ESTERASE 3+ Leu/uL (Negative); URINE PROTEIN NEGATIVE (NEGATIVE); URINE UROBILINOGEN NORMAL mg/dL (0.2-1.0); WBC URINE 23 /hpf (0-5)
--- NOTE | 2017-08-15 23:07 | US ---
EXAM: US Pelvis Complete, Transabdominal CLINICAL HISTORY: 41 years old, female; Pain; Abdominal pain; Lower abdomen; Additional info: Post- abdominal pain TECHNIQUE: Real-time transabdominal pelvic ultrasound (complete) with image documentation. COMPARISON: No relevant prior studies available. FINDINGS: Uterus/cervix: Uterus measures 13.0 x 8.0 x 9.5 cm in size. No myometrial mass. Closed cervix. Endometrium: 0.6 cm in thickness. Two echogenic foci within endometrium, larger measuring 0.4 x 0.4 x 0.3 cm. Right ovary: 4.2 x 2.2 x 2.1 cm in size. No mass. Normal flow. Left ovary: 3.2 x 1.5 x 2.7 cm in size. No mass. Normal flow. Free fluid: No significant free fluid. Bladder: Unremarkable as visualized. IMPRESSION: 1. Echogenic foci within endometrium, nonspecific. Clinical correlation is needed.
[2017-08-15] MEDS ORDERED: cefTRIAXone IV 1 gm in Dextros 50 ML IVPB ONE (23:25)
[2017-08-16 00:55] VITALS: BP 96/61; PULSE 95; RESP 18; TEMP 98.2
[2017-08-16 02:44] VITALS: O2SAT 99
== END 2017-08-16 00:56 | disposition home or self-care (01) ==
LOC: C.ER 20:29
DX: N39.0 Urinary tract infection, site not specified (principal)
CPT/HCPCS: 76830; 76856; 80053; 81001; 84703; 85025; 87070; 87086; 87430; 87804; 96361; 96365; 96375; 99285; J0696; J1885; J2405; J7040